=== PATIENT | female | born 1985 | race Caucasian/White ===

== ENCOUNTER 2018-01-15 00:20 | Emergency (ER) | payer BC, OTHER ==
[~2018-01-15] VITALS: Ht 162.6 cm; Wt 68.0 kg
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
[2018-01-15] MEDS ORDERED: ONDANSETRON HCL/PF 4 MG/2 ML VIAL ONE ×2 (00:35→01:19)
--- NOTE | 2018-01-15 00:54 | NUR ---
Patient is resting comfortably in bed with eyes closed. Easily aroused. VSS
[2018-01-15] MEDS ORDERED: IV NS 0.9% 1,000 ML BAG IV ONE (01:00)
[2018-01-15] MEDS ORDERED: ONDANSETRON HCL/PF 4 MG/2 ML VIAL IVP ONE (01:00)
[2018-01-15] MEDS ORDERED: ONDANSETRON HCL/PF 4 MG/2 ML VIAL IV ONE (01:30)
--- NOTE | 2018-01-15 02:16 | NUR ---
Patient is resting comfortably in bed with eyes closed. Easily aroused. VSS
--- NOTE | 2018-01-15 02:30 | NUR ---
DR. RODRIGUEZ AT BEDSIDE SPEAKING TO PT REGARDING POC
--- NOTE | 2018-01-15 02:36 | NUR ---
IV removed. Catheter intact and site benign. Pressure and 4x4 applied to site. No bleeding noted. Patient discharged to home in stable condition. Written and verbal after care instructions given. Patient verbalizes understanding of instruction. ambulatory with a steady gait. pt instructed not to drive. pt verbalize understanding.
[2018-01-15 02:37] VITALS: BP 108/77
== END 2018-01-15 02:37 | disposition home or self-care (01) ==
LOC: ER 00:21
DX: T40.7X1A Poisoning by cannabis (derivatives), accidental (unintentional), initial encounter (principal); F12.10 Cannabis abuse, uncomplicated; Y92.89 Other specified places as the place of occurrence of the external cause
CPT/HCPCS: 36415; 84703-TC; A4606; J2405; J7030; Z7610

== ENCOUNTER 2018-03-08 12:44 | Emergency (ER) | payer BC, OTHER ==
[~2018-03-08] VITALS: Ht 162.6 cm; Wt 74.8 kg
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
[2018-03-08] MEDS ORDERED: MORPHINE SULFATE INJ 4 MG/ML DISP.SYRIN ONE (14:13)
[2018-03-08] MEDS ORDERED: ONDANSETRON HCL/PF 4 MG/2 ML VIAL ONE (14:14)
[2018-03-08 14:29] LABS: BASOPHILS % (AUTO) 0.5 % (0.0-2.0); EOSINOPHILS % (AUTO) 0.9 % (0.0-6.0); HEMATOCRIT 34 % (33-45); HEMOGLOBIN 11.7 g/dL (11.5-14.8); LYMPHOCYTES # (AUTO) 3.1 /CMM (0.8-4.8); LYMPHOCYTES % (AUTO) 33.7 % (20.0-44.0); MEAN CORPUSCULAR HGB CONC 34 g/dl (31.0-36.0); MEAN CORPUSCULAR VOLUME 88 fL (82-100); MONOCYTES # (AUTO) 0.2 /CMM (0.1-1.30); MONOCYTES % (AUTO) 1.8 % (2.0-12.0); NEUTROPHILS # (AUTO) 5.9 /CMM (1.8-8.9); NEUTROPHILS % (AUTO) 63.1 % (43.0-81.0); PLATELET COUNT (AUTO) 364 /CMM (150-450); RDW COEFFICIENT OF VARIATION 11.3 (11.5-15.0); RED BLOOD CELL COUNT(AUTO) 3.86 MIL/uL (4.0-5.2); WHITE BLOOD COUNT (AUTO) 9.3 K/uL (4.3-11.0)
[2018-03-08] MEDS ORDERED: ONDANSETRON HCL/PF 4 MG/2 ML VIAL IVP ONE (14:30)
[2018-03-08] MEDS ORDERED: IV NS 0.9% 1,000 ML BAG IV ONE (14:30)
[2018-03-08] MEDS ORDERED: MORPHINE SULFATE INJ 2 MG/ML DISP.SYRIN IV ONE (14:30)
--- NOTE | 2018-03-08 14:30 | NUR ---
NEW IV STARTED ON LAC, 20G. BLOOD DRAWN AND SENT TO LAB. PATIENT REFUSING MORPHINE AND ZOFRAN AT THIS TIME, DESPITE HAVING PAIN. STATING, "I DONT LIKE DRUGS." ADRIA CUMMINGS INFORMED.
[2018-03-08 14:31] LABS: APPEARANCE,URINE Cloudy (CLEAR); BILIRUBIN,URINE Negative (NEGATIVE); BLOOD, URINE Trace-intact Ery/uL (NEGATIVE); KETONES,URINE Trace (NEGATIVE); LEUKOCYTE ESTERASE ,URINE Negative (NEGATIVE); NITRITE, URINE Negative (NEGATIVE); PH,URINE 6.5 (5.0-8.0); PROTEIN,URINE Negative (NEGATIVE); UGLUCOSE Negative (NEGATIVE); UROBILINOGEN,URINE 0.2 EU/dL (0.2)
[2018-03-08 14:32] LABS: COLOR,URINE Dark Yellow (YELLOW)
[2018-03-08 14:39] LABS: BACTERIA,URINE Moderate /HPF (None Seen); CALCIUM, SERUM 8.9 mg/dL (8.5-10.1); CREATININE 0.8 mg/dL (0.6-1.3); POTASSIUM 3.5 mmol/L (3.5-5.1); SQUAMOUS EPITHELIAL CELL,UR Few /HPF (None Seen)
[2018-03-08 14:44] LABS: ALBUMIN 3.6 g/dL (3.4-5.0); BILIRUBIN,DIRECT 0.1 mg/dL (0.0-0.2); BILIRUBIN,TOTAL 0.3 mg/dL (0.2-1.0); TOTAL PROTEIN, SERUM 7.5 g/dL (6.4-8.2)
[2018-03-08] MEDS ORDERED: IOHEXOL-300 100 ML VIAL IV ONE (14:48)
[2018-03-08] MEDS ORDERED: CT SWABBABLE VALVE TRANS SET 1 EA INFUS.SET MC ONE (14:48)
[2018-03-08] MEDS ORDERED: IV NS 0.9% 500 ML IV ONE (14:48)
--- NOTE | 2018-03-08 14:51 | NUR ---
PATIENT TAKEN TO RADIOLOGY IN STABLE CONDITION.
--- NOTE | 2018-03-08 15:04 | NUR ---
PATIENT BACK FROM RADIOLOGY
--- NOTE | 2018-03-08 15:04 | NUR ---
PATIENT REFUSING REMAINDER OF IV FLUIDS. IVF HELD AT THIS TIME. INFORMED
[2018-03-08] MEDS ORDERED: KETOROLAC TROMETHAMINE INJ 30 MG/ML VIAL IV ONE (16:00)
[2018-03-08] MEDS ORDERED: KETOROLAC TROMETHAMINE INJ 30 MG/ML VIAL ONE (16:05)
--- NOTE | 2018-03-08 16:30 | NUR ---
IV removed. Catheter intact and site benign. Pressure and 4x4 applied to site. No bleeding noted. Patient discharged to home in stable condition. Written and verbal after care instructions given. Patient verbalizes understanding of instruction.
[2018-03-08 16:35] VITALS: BP 128/64
== END 2018-03-08 16:30 | disposition home or self-care (01) ==
LOC: ER 12:45
DX: S20.211A Contusion of right front wall of thorax, initial encounter (principal); S30.1XXA Contusion of abdominal wall, initial encounter; R82.79 Other abnormal findings on microbiological examination of urine; V43.53XA Car driver injured in collision with pick-up truck in traffic accident, initial encounter; Y93.89 Activity, other specified; Y92.89 Other specified places as the place of occurrence of the external cause; Y99.8 Other external cause status
CPT/HCPCS: 36415; 71260; 74160; 80048; 80076; 81001; 84703; 85025; 87086; 96361; 96374; 99285; A4606; J1885; J7030; J7040; Q9967; Z7610; 81000-TC; J2270; J2405

== ENCOUNTER 2018-11-07 12:26 | Emergency (ER) | payer BC, OTHER ==
[~2018-11-07] VITALS: Ht 162.6 cm; Wt 74.8 kg
[2018-11-07] MEDS ORDERED: IBUPROFEN 600 MG TABLET PO ONE ×2 (12:50→13:00)
[2018-11-07 13:01] VITALS: BP 125/81
--- NOTE | 2018-11-07 13:02 | NUR ---
Patient discharged to home in stable condition. Written and verbal after care instructions given. Patient verbalizes understanding of instruction.
== END 2018-11-07 13:01 | disposition home or self-care (01) ==
LOC: ER 12:26
DX: J06.9 Acute upper respiratory infection, unspecified (principal); Z91.040 Latex allergy status
CPT/HCPCS: 99282; A4606; Z7610